=== PATIENT | female | born 1945 | race Caucasian/White ===

== ENCOUNTER 2024-09-20 12:01 | Emergency (ER) | payer MEDICARE, OTHER ==
[2024-09-20 12:01] VITALS: BP 0/0
[~2024-09-20 12:01] MED LIST: ACTOS; CELEBREX; DIOVAN; HYDR-4833; LANTUS; LIPITOR; SEROQUEL
[2024-09-20 12:26] VITALS: PULSE 0; RESP 0; O2SAT 0
--- NOTE | 2024-09-20 13:00 | RESUS ---
CODE BLUE ASSESSSMENT History of Events History of Events: 79F is BIBA w/ prior Hx of DM and HTN which may not be associated to the c/c of CPR x1200, today. Per EMS, the pt was last seen normal at x1130 and was a witness arrest from the pt's neighbors as they were over at the pt's house to help out. the neighbors did start CPR. EMS stateon recieving a call at [phone] and arriving x1140. On scene they gave the pt 8 minutes of CPR and was ROSC. They put the pt into the transport. En rout the pt's pulse went into V-FIB and was shocked once into ROSC. Pt was given 225mg of lidocaine, 2 rounds of epinephrine, I/O on right Fibia and a BLS airway. Arrival to ED at x1200 and CPR started at x1203 due to loss of pulse aUnable to get SHx shun pt due fromCPR. Family was not present at [facility] when pt arrived. Initial Information Date: Sep 20, 2024 Time: 12:00 Location of Arrest: Pt House Arrest Witnessed: Yes CPR started initial time: 11:30 CPR started by whom: Bystander Last seen well: 1129 Type of arrest: Cardiac, Witnessed Pulse Present: No Time Code Ended Time Code Ended: 12:11 Post Arrest Status: Outcome of code: Unsuccessful Patient pronounced by: Family notified: Yes I personally scribed for GISELLA FIELDS MD ([email or web address]) on 09/20/24 at 13:00. Electronically submitted by Ceasar Daniels ([email or web address]). GISELLA FIELDS MD Sep 20, 2024 13:00
--- NOTE | 2024-09-20 14:20 | ED.PDOC ---
CPR-HPI HPI Comments 79-year-old female brought by paramedics because of cardiac arrest while sitting her chair. Patient was being bagged. She had no pulse on arrival. She was given epinephrine in the field. She was also given lidocaine for possible VFib. Patient came in [place]. possibly has history of CHF hypertension. Unknown the alyse ntime. Chief Complaint: CPR Time Seen by MD: 12:02 Reviewed Notes: Nurses Notes, Medications, Allergies Allergies: Uncoded Allergies: PENACILLIN (Allergy, 10/09/10) Home Meds Reported Medications [Plano] (Plano 5-325 mg) No Conflict Check 10/09/10 [Seroquel] No Conflict Check 10/09/10 [Celebrex] No Conflict Check 10/09/10 [Actos] No Conflict Check 10/09/10 [Diovan] No Conflict Check 10/09/10 [Lipitor] No Conflict Check 10/09/10 [Lantus] No Conflict Check 10/09/10 Information Source: Emergency Med Personnel Mode of Arrival: EMS Timing: Minutes Duration: Down time prior EMS: (Unknown), Total time prior hopital: (20 minutes) Onset: At rest Inital rhythm: V-fib, PEA Treatment: CPR Past Medical History PAST MEDICAL HISTORY: CHF, HTN Surgical History: Denies all surgeries TOUR CONSULTANT History: No Pertinent TOUR CONSULTANT History Social History Smoker: Non-Smoker Alcohol: Denies ETOH Use Drugs: Denies Drug Use Unable to Obtain due to: Altered Mental Status Physical Exam General Appearance: Obese, Severe Distress HEENT: Other (Pupils fixed and dilated) Neck: NOT DONE Respiratory: Respiratory Distress, Other (Intubated the patient) Cardiovascular: Other (No pulse) Breast Exam: Deferred Gastrointestinal: Soft Genitalia: Deferred Pelvic: Deferred Rectal: Deferred Extremities: NOT DONE Neurologic: Other (Unconscious) Cerebellar Function: NOT DONE Reflexes: NOT DONE Skin: Pallor Peripheral Pulses: 3+ Radial (R), 3+ Radial (L) Lymphatic: NOT DONE Was a procedure done? Was a procedure done?: Yes Sedation Sedation?: No Intubation Indication: Respiratory Insufficiency Prep: Preoxygenation Intubation Approach: Orotracheal Intubation size: cm (8) Differential Dx CPR Differential Diagnosis: Cardiopulmonary arrest, Cardiac Tamponade, Cardiogenic shock X-Ray, Labs, Meds, VS Vital Signs Date Time Temp Pulse Resp B/P (MAP) Pulse Ox O2 Delivery O2 Flow Rate FiO2 09/20/24 12:26 0 0 0 Simple Mask* 12 21 21 09/20/24 12:01 0 0 0/0 (0) 0 Patient unconscious pain Unable to get history. CPR started. Intubated the patient. Continue CPR. ACLS drugs use. Unknown downtime. Possibly CHF. Had a massive SC. Family had arrived. Explained to the family about her condition. They stated that they know this was weaned to happened. They were not surprised about the cardiac arrest. Spoke with the team. Pronounce the patient. Time of 1ST Reevaluation: 14:18 Reevaluation 1ST: Unchanged Patient Education/Counseling: Pt Unresponsive Family Education/Counseling: No Family Present Departure 1 Departure Time of Disposition: 14:19 Impression: Primary Impression: Cardiac arrest Additional Impression: Respiratory failure Qualified Codes: J96.01 - Acute respiratory failure with hypoxia Disposition: 20 Condition: Other Critical Care Note Critical Care Time?: Yes (45 min-critical care time only) Heart Score Heart Score: Heart Score Response (Comments) Value History N/A 0 EKG N/A 0 Age N/A 0 Risk Factors N/A 0 Troponin N/A 0 Total 0 Stability Stability form required: GISELLA Chan MD Sep 20, 2024 14:20
--- NOTE | 2024-09-20 18:38 | RESUS ---
CODE OSBALDO ASSESSSMENT History of Events History of Events: SECURRED CODE OSBALDO ARRIVED AT 1200 EMS REPORTED ROSC, PATIENT LOST PULSES IN ER AT 1203 Initial Information Date: Sep 20, 2024 Time: 12:03 Location of Arrest: ER CPR started by whom: Hospital Staff Pre-Hospital Care: ACLS Type of arrest: Cardiac, Witnessed Spontaneous Respirations: No Pulse Present: No Monitoring: Pulse Oximetry Crash Cart Opened and Supplies: Yes Airway Ventilation Breathing at Onset: Assisted Artificial Ventilation: Bag/Mask Intubation Time: 12:04 Intubation Size: 8.0 cuffed Intubated by: MICAH HALL Intubation Attempts: 1 Intubated orally: Yes Tube secured at: 24 CO2 indicator used: Yes Confirmation: Auscultation Suctioning (Oral/Tracheal): Yes Circulation Circulation #1: Time: 12:03 Pulse Rate (adult): 0 Blood Pressure Systolic: 0 Blood Pressure Diastolic: 0 Circulation Comment: [place] Circulation #2: Time: 12:05 Pulse Rate (adult): 0 Blood Pressure Systolic: 0 Blood Pressure Diastolic: 0 Circulation Comment: [place] Circulation #3: Time: 12:07 Pulse Rate (adult): 0 Blood Pressure Systolic: 0 Blood Pressure Diastolic: 0 Circulation Comment: [place] Circulation #4: Time: 12:09 Pulse Rate (adult): 0 Blood Pressure Systolic: 0 Blood Pressure Diastolic: 0 Circulation Comment: [place] Circulation #5: Time: 12:11 Pulse Rate (adult): 0 Blood Pressure Systolic: 0 Blood Pressure Diastolic: 0 Circulation Comment: [place], TIME OF , FAMILY AT BEDSIDE AT THIS TIME SPOKE WITH DR FIELDS Medications & Response Medications and Responses #1: Medication Time: 12:03 ADULT Medications Given ADULT: Epinephrine 1 mg, Sodium Bacarbinate 50 meq Route of Administration: IO Medications and Responses #2: Medication Time: 12:06 ADULT Medications Given ADULT: Epinephrine 1 mg, Sodium Bacarbinate 50 meq Route of Administration: IO Medications and Responses #3: Medication Time: 12:09 ADULT Medications Given ADULT: Epinephrine 1 mg Route of Administration: IO Nurses Notes Jaquan Coma Scale Eye Opening: None (1) [place] Coma Scale Verbal: None (1) [place] Coma Scale Motor: None (1) Pupil Reaction: Non Reactive Bedside Blood Glucose: 94 EKG Rhythm: Asystole Time Code Ended Time Code Ended: 12:11 Post Arrest Status: Outcome of code: Unsuccessful Patient pronounced by: DR FIELDS Time patient pronounced: 12:11 Code Team Present: AUDI DILLARD HEADER MACHINE OPERATOR, THU RN, DOMINICK RN, YUNIOR RN, MICAH RT, ISIAH RT Audi Conner Sep 20, 2024 18:38
== END 2024-09-20 12:12 ==
LOC: EDBD 12:01 → ER 12:01
DX: I46.9 Cardiac arrest, cause unspecified (principal); J96.90 Respiratory failure, unspecified, unspecified whether with hypoxia or hypercapnia; I11.0 Hypertensive heart disease with heart failure; I50.9 Heart failure, unspecified
CPT/HCPCS: 31500; 92950